=== PATIENT | female | born 1995 | race American Indian/Alaskan Native ===

== ENCOUNTER 2017-04-20 05:47 | Day surgery (SDC) | payer MEDICAID ==
--- NOTE | 2017-04-19 13:24 | History and Physical Report ---
History of Present Illness Date of examination: 04/17/17 History of present illness: Patient has been reassessed/reevaluated/re-examined. H&P has been reviewed. No interval changes. Patient presents for follow up after MAB, patient would like to proceed with D& C...Renaeyuridia Corby Positive UPT Vital Signs: Patient Profile: 21 Years Old Female Height: 63 inches Weight: 141 pounds BMI: 24.97 Past History : 1 Term Births: 0 Premature Births: 0 Living Children: 0 Para: 0 Mult. Births: 0 Prev : 0 Prev. attempt? 0 Aborta: 0 Elect. Ab: 0 Spont. 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 of genital herpes: no Partner hx. of genital herpes: no Hx of STD: chlamydia Current Allergies: No known allergies Past Medical History: Negative Past Medical History Family History Summary: Other family member - Has Family History of Coronary Heart Disease - Entered On : 04/09/2017 Other family member - Has Family History of Diabetes - Entered On: 04/09/2017 Other family member - Has Family History of Hypertension - Entered On: 04/09/2017 Other family member - Has No Family History of Breast Cancer - Entered On: 2016 Other family member - Has No Family History of Colon Cancer - Entered On: 2016 Other family member - Has No Family History of Ovarvian Cancer - Entered On: 09/2017 Social History: 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 Denies fever, chills, sweats, anorexia, weakness, malaise, weight loss and sleep disorder. Complains of abnormal vaginal bleeding. Denies vaginal discharge, incontinence, dysuria, hematuria, urinary frequency, amenorrhea, menorrhagia, pelvic pain, genital sores, decreased libido , painful periods, painful sex, urinary urgency, hot flashes, vaginal dryness, vaginal itching and vaginal odor. CV Denies chest pains, palpitations, syncope, dyspnea on exertion, orthopnea, PND and peripheral edema. Resp Denies cough, dyspnea at rest, excessive sputum, hemoptysis, wheezing and pleurisy. GI Denies nausea, vomiting, diarrhea, constipation, change in bowel habits, abdominal pain, melena, hematochezia, jaundice, gas/bloating, indigestion/ heartburn, dysphagia and odynophagia. Breast Complains of breast pain. Denies left breast lump, right breast lump, nipple discharge, bloody discharge from nipple, abnormal mammogram and breast enlargement. Psych Denies depression, anxiety, irritability and mood swings. Past History Past Medical History: other (See HPI) Past Surgical History: Other (See HPI) Social history: other (See HPI) Family history: other (See HPI) Medications and Allergies Allergies Allergy/AdvReac Type Severity Reaction Status Date / Time No Known Allergies Allergy Unverified 04/18/17 14:26 Home Medications Medication Instructions Recorded Confirmed Last Taken Type No Known Home Medications [No 04/18/17 04/18/17 Unknown History Reported Home Medications] Active Meds: Active Medications Famotidine (Pepcid) 20 mg PO PREOP NR Stop: 04/20/17 23:59 Sodium Chloride (Nacl 0.9% 1000 Ml) 1,000 mls @ 75 mls/hr IV DIRECT ALISON Midazolam HCl (Versed) 2 mg IV PREOP NR Stop: 04/20/17 23:59 Review of Systems Constitutional: other (See HPI) Exam - Constitutional General appearance: Present: no acute distress - Respiratory Respiratory effort: normal - Cardiovascular Rhythm: regular - Extremities Extremities: no ischemia - Abdominal General gastrointestinal: Present: soft, non-tender Female genitourinary: Present: normal - Rectal Rectal Exam: deferred - Integumentary Integumentary: Present: clear, warm, dry - Psychiatric Psychiatric: appropriate mood/affect Assessment and Plan - Patient Problems (1) Missed Current Visit: Yes Status: Acute Plan to address problem: Medical and surgical treatment options discussed Patient desires definitive treatment Patient desires D&C Discussed risk of surgery including infection, bleeding and risk of perforating her uterus. Questions answered. Patient understands and desires to proceed
[2017-04-20] MEDS ORDERED: NACL 0.9% 1000 ML 1,000 ML IV SCH (06:00)
[2017-04-20] MEDS ORDERED: VERSED IV NR (06:00)
[2017-04-20] MEDS ORDERED: PEPCID PO NR (06:00)
--- NOTE | 2017-04-20 06:38 | Anesthesia Day of Surgery ---
Anesthesia Day of Surgery - Day of Surgery Patient Examined: Yes Patient H&P Reviewed: Yes Patient is NPO: Yes
--- NOTE | 2017-04-20 06:38 | Anesthesia Consultation ---
Anesthesia Consult and Med Hx Date of service: 04/20/17 - Airway Anesthetic Teeth Evaluation: Good ROM Head & Neck: Adequate Mental/Hyoid Distance: Adequate Mallampati Class: Class II Intubation Access Assessment: Good - Pulmonary Exam CTA: Yes - Cardiac Exam Cardiac Exam: RRR - Pre-Operative Health Status ASA Pre-Surgery Classification: ASA1 Proposed Anesthetic Plan: General - Pulmonary Hx Smoking: No - Central Nervous System Hx Psychiatric Problems: No - Other Systems Hx Cancer: No
[2017-04-20] MEDS ORDERED: METHERGINE IM ONE ×2 (07:15→08:22)
[2017-04-20] MEDS ORDERED: SILVER NITRATE TP ONE (07:15)
[2017-04-20] MEDS ORDERED: DILAUDID ONE (07:22)
[2017-04-20] MEDS ORDERED: DIPRIVAN 10 MG/ML IV ONE (07:22)
[2017-04-20 07:37] LABS: Hematocrit 32.5 % (30.3-42.9); Hemoglobin 10.8 gm/dl (10.1-14.3)
[2017-04-20] MEDS ORDERED: XYLOCAINE MPF 2% ONE (07:38)
[2017-04-20] MEDS ORDERED: ZOFRAN ONE (07:45)
[2017-04-20] MEDS ORDERED: ZOFRAN IV PRN (07:49)
[2017-04-20] MEDS ORDERED: DILAUDID IV PRN (07:49)
[2017-04-20] MEDS ORDERED: DECADRON ONE (07:55)
--- NOTE | 2017-04-20 08:11 | Operative Report ---
Operative Report Operative Report: Date of procedure: 04/20/2017 Pre-operative diagnosis: Missed Post-operative diagnosis: Same Procedure name(s): Suction dilatation and curettage Surgeon: Domingo Patel MD Baggage Smasher: [] Anesthesia: General EBL: 400 mL Complications: None Findings: A large amount of tissue consistent with products of conception Specimen(s): Uterine contents Procedure: The patient was brought operating room where general anesthesia was induced without difficulty. Patient was placed in dorsal lithotomy position prepped and draped in the usual sterile manner. Rubber catheter was used to empty her bladder. Speculum placed in the vagina. Tenaculum was placed at 12: 00. The cervix was dilated progressively with Hegar dilators. A 10 mm suction catheter was placed through the cervical os. Several passes of the suction catheter removed the uterine contents. Gentle curettage was done with a banjo curettte. On until a gritty sensation was felt throughout the uterine cavity. Further suction with the suction curettage revealed no further products. Patient did have significant bleeding through her process was given the Methergine IM. This was patient's uterus did have some contractions and bleeding stopped All instruments were removed patient was hemostatic. She was awakened in the operating room and accompanied to recovery room in good condition.
--- NOTE | 2017-04-20 08:14 | Short Stay Summary ---
Short Stay Documentation Date of service: 04/20/17 - History H&P: dictated Past Medical History: other (See HPI) Past Surgical History: Other (See HPI) Social history: other (See HPI) - Allergies and Medications Current Medications: Allergies No Known Allergies Allergy (Unverified 04/18/17 14:26) Home Medications Medication Instructions Recorded Confirmed Last Taken Type No Known Home Medications [No 04/18/17 04/18/17 Unknown History Reported Home Medications] Active Medications Famotidine (Pepcid) 20 mg PO PREOP NR Stop: 04/20/17 23:59 Last Admin: 04/20/17 06:45 Dose: 20 mg Hydromorphone HCl (Dilaudid) 0.5 mg IV Q10MIN PRN PRN Reason: Pain , Severe (7-10) Stop: 04/23/17 07:50 Sodium Chloride (Nacl 0.9% 1000 Ml) 1,000 mls @ 75 mls/hr IV DIRECT ALISON Last Admin: 04/20/17 06:50 Dose: 75 mls/hr Midazolam HCl (Versed) 2 mg IV PREOP NR Stop: 04/20/17 23:59 Last Admin: 04/20/17 07:28 Dose: 2 mg Ondansetron HCl (Zofran) 4 mg IV ONCE PRN PRN Reason: Nausea And Vomiting Stop: 04/20/17 07:50 - Physical exam Extremities: no ischemia - Brief post op/procedure progress note Date of procedure: 04/20/17 (see dictated operative note) - Hospital course Hospital course: Patient was admitted underwent the above him procedure without any complications. Patient will be discharged with follow-up in office in 1-2 weeks for postop check. - Disposition Condition at discharge: Good Disposition: DC-01 TO HOME OR SELFCARE - Discharge Diagnoses (1) Missed Status: Acute Short Stay Discharge Plan Activity: advance as tolerated Diet: regular Additional Instructions: ACTIVITY : ADVANCE TOLERATED. DIET : REGULAR. PRESCRIPTIONS :GIVEN FOR PAIN ANTIBIOTIC AND UTERINE BLEEDING. APPOINTMENT: DR LANDON WANTS TO SEE YOU IN 1-2 WEEKS FOR POST OPERATIVE CHECK. CALL FOR APPOINTMENT AND FOR ANY QUESTIONS OR CONCERNS RELATED TO TODAY 'S PROCEDURE. Forms: Outpatient Surgery DC Inst. Prescriptions: Methylergonovine [Methergine] 0.2 mg PO Q8HR #9 tablet Ibuprofen [Motrin] 800 mg PO Q6H PRN #30 tablet PRN Reason: Pain Acetaminophen/Codeine [Tylenol #3] 1 tab PO Q4HR PRN #20 tablet PRN Reason: Pain Doxycycline [Vibramycin CAP] 100 mg PO Q12HR #14 capsule
[2017-04-20] MEDS ORDERED: NACL 0.9% IR ONE (08:22)
[2017-04-20 08:43] LABS: Hematocrit 25.8 % (30.3-42.9); Hemoglobin 8.8 gm/dl (10.1-14.3)
[2017-04-20] MEDS ORDERED: MOTRIN PO PRN (08:45)
[2017-04-20] MEDS ORDERED: TYLENOL #3 PO PRN (08:45)
--- NOTE | 2017-04-20 09:17 | Post Anesthesia Evaluation ---
- Post Anesthesia Evaluation Patient Participated: Yes Airway Patent: Yes Stable Respiratory Function: Yes Nausea/Vomiting: No Temp > 96.8F: Yes Pain Manageable: Yes Adequeate Hydration: Yes Anesthesia Complications: No Block Receding Appropriately: Not Applicable Patient on Ventilator: No
[2017-04-20 10:00] VITALS: BP 116/67
[2017-04-20] MEDS ORDERED: PHENERGAN PO ONE (10:21)
== END 2017-04-20 10:39 | disposition home or self-care (01) ==
LOC: OR 05:47
PROVIDERS: ATTEND Obstetrics & Gynecology
DX: O02.1 Missed abortion (principal); Z87.891 Personal history of nicotine dependence; Z72.89 Other problems related to lifestyle; Z82.49 Family history of ischemic heart disease and other diseases of the circulatory system; Z83.3 Family history of diabetes mellitus; Z80.3 Family history of malignant neoplasm of breast; Z80.0 Family history of malignant neoplasm of digestive organs; Z80.41 Family history of malignant neoplasm of ovary
CPT/HCPCS: 36415; 59820; 85014; 85018; 86900; 86901; 88305; J1100; J1170; J2210; J2250; J2405; J2704; J7030; Q0169